=== PATIENT | female | born 1975 | race Caucasian/White ===

== ENCOUNTER 2018-08-08 11:52 | Emergency (ER) | payer OTHER ==
[~2018-08-08] VITALS: Ht 167.6 cm; Wt 77.1 kg
== END 2018-08-08 15:30 | disposition home or self-care (01) ==
LOC: ER 11:52
DX: G43.909 Migraine, unspecified, not intractable, without status migrainosus (principal); F17.200 Nicotine dependence, unspecified, uncomplicated
CPT/HCPCS: 70450; 96361; 96374; 96375; 99283-25; J0780; J1100; J1170; J1200; J1885; J7030

== ENCOUNTER 2019-04-13 14:52 | Emergency (ER) | payer OTHER ==
[~2019-04-13] VITALS: Ht 167.6 cm; Wt 71.8 kg
[2019-04-13 15:27] LABS: BASOPHILS ABSOLUTE AUTO 0.02 K/mm3 (0.00-0.23); BASOPHILS PERCENT AUTO 0 % (0-2); EOSINOPHILS ABSOLUTE AUTO 0.22 K/mm3 (0.00-0.68); EOSINOPHILS PERCENT AUTO 3 % (0-6); Hematocrit 39.5 % (33.0-51.0); Hemoglobin 13.5 g/dL (11.5-16.0); IMMATURE GRAN ABSOLUTE AUTO 0.02 K/mm3 (0.00-0.10); IMMATURE GRAN PERCENT AUTO 0 % (0-1); LYMPHOCYTES ABSOLUTE AUTO 1.81 K/mm3 (0.84-5.20); LYMPHOCYTES PERCENT AUTO 20 % (21-46); MONOCYTES ABSOLUTE AUTO 0.66 K/mm3 (0.16-1.47); MONOCYTES PERCENT AUTO 7 % (4-13); Mean Corpuscular HGB 30.6 pg (26.0-34.0); Mean Corpuscular HGB Conc 34.2 g/dL (31.5-36.5); Mean Corpuscular Volume 90 fL (80-100); Mean Platelet Volume 10.5 fL (9.1-12.4); NEUTROPHILS ABSOLUTE AUTO 6.14 K/mm3 (1.96-9.15); NEUTROPHILS PERCENT AUTO 69 % (41-73); Platelet Count 330 K/mm3 (150-400); RDW Coefficient Variation 12.8 % (11.7-14.2); RDW Standard Deviation 41.9 fL (35.1-46.3); Red Blood Cell Count 4.41 M/mm3 (3.80-5.20); White Blood Cell Count 8.87 K/mm3 (4.00-11.30)
[2019-04-13 15:44] LABS: Alanine Aminotransfer (ALT/SGP 21 U/L (12-78); Albumin, Blood 3.9 g/dL (3.4-5.0); Albumin/Globulin Ratio 0.9 (0.8-1.8); Alk Phos 84 U/L (50-136); Anion Gap 8 mmol/L (6-16); Aspartate Aminotrans (AST/SGOT 17 U/L (12-37); Bilirubin, Total 0.3 mg/dL (0.1-1.0); Blood Urea Nitrogen 10 mg/dL (8-24); Bun/Creatinine Ratio 14.3 (12.0-20.0); CO2, Blood 21 mmol/L (21-32); Calcium, Blood 9.1 mg/dL (8.5-10.1); Chloride, Blood 110 mmol/L (98-108); Globulin, Blood 4.2 g/dL (2.2-4.0); Glomerular Filtration Rate >60 (60-); Glucose, Blood 89 mg/dL (70-99); Potassium, Blood 3.7 mmol/L (3.5-5.5); Sodium, Blood 139 mmol/L (136-145); Total Protein, Blood 8.1 g/dL (6.4-8.2); Troponin I <0.015 ng/mL (0.000-0.040)
[2019-04-13 15:53] LABS: Thyroxine (T4) 11.6 ug/dL (4.8-13.9)
[2019-04-13 15:56] LABS: Thyroid Stimulating Hormone 1.2 uIU/mL (0.360-4.800)
[2019-04-13 20:40] LABS: U Amphetamine Screen Not Detected; U Barbituate Screen Not Detected; U Benzodiazapine Screen Not Detected; U Buprenorphine Screen Not Detected; U Cannabinoids Screen DETECTED; U Cocaine Screen Not Detected; U Methadone Screen Not Detected; U Methamphetamine Screen Not Detected; U Opiates Screen Not Detected; U Oxycodone Screen Not Detected; U Phencyclidine Screen Not Detected; U Propoxyphene Screen Not Detected
[2019-04-13] MEDS ORDERED: ALBU90OI INH (23:51)
[2019-04-13] MEDS ORDERED: Ativan1 MG SL (23:51)
== END 2019-04-14 00:45 | disposition home or self-care (01) ==
LOC: ER 14:52
PROVIDERS: Emergency Medicine; Physician Assistant
DX: R06.00 Dyspnea, unspecified (principal); F43.9 Reaction to severe stress, unspecified; G43.909 Migraine, unspecified, not intractable, without status migrainosus; F17.200 Nicotine dependence, unspecified, uncomplicated
CPT/HCPCS: 36415; 71046; 71260; 80053; 83735; 83880; 84436; 84443; 84484; 85025; 85379; 93005; 93010; 94664; 99285-25; Q9967

== ENCOUNTER 2020-01-30 11:51 | Inpatient (IN) | payer MEDICARE, OTHER ==
[~2020-01-30] VITALS: Ht 167.6 cm; Wt 71.2 kg
[~2020-01-30 11:51] MED LIST: ALBU90OI INH; Ativan1 MG SL
[2020-01-30 13:00] LABS: Source, Urine Clean Catch
[2020-01-30 13:03] LABS: BASOPHILS ABSOLUTE AUTO 0.03 K/mm3 (0.00-0.23); BASOPHILS PERCENT AUTO 0 % (0-2); EOSINOPHILS PERCENT AUTO 0 % (0-6); Hemoglobin 13.1 g/dL (11.5-16.0); IMMATURE GRAN PERCENT AUTO 1 % (0-1); LYMPHOCYTES ABSOLUTE AUTO 1.18 K/mm3 (0.84-5.20); LYMPHOCYTES PERCENT AUTO 8 % (21-46); MONOCYTES ABSOLUTE AUTO 1.32 K/mm3 (0.16-1.47); MONOCYTES PERCENT AUTO 9 % (4-13); Mean Corpuscular HGB 30.8 pg (26.0-34.0); Mean Corpuscular HGB Conc 34.5 g/dL (31.5-36.5); Mean Corpuscular Volume 89 fL (80-100); Mean Platelet Volume 9.6 fL (9.1-12.4); NEUTROPHILS ABSOLUTE AUTO 12.29 K/mm3 (1.96-9.15); NEUTROPHILS PERCENT AUTO 82 % (41-73); Platelet Count 423 K/mm3 (150-400); RDW Coefficient Variation 12.9 % (11.7-14.2); RDW Standard Deviation 42.5 fL (35.1-46.3); Red Blood Cell Count 4.25 M/mm3 (3.80-5.20); White Blood Cell Count 14.92 K/mm3 (4.00-11.30)
[2020-01-30 13:04] LABS: Appearance, Urine Cloudy (Clear); Blood, Urine 4+ (Neg); Color, Urine Yellow (P-Yellow); Glucose Qualitative, Urine Neg (Neg); Ketones, Urine 4+ (Neg); Leukocyte Esterase, Urine 3+ (Neg); Nitrite, Urine Neg (Neg); Protein, Urine 3+ (Neg); Urobilinogen, Urine 1+ (Normal)
[2020-01-30 13:10] LABS: Bilirubin, Urine 1+ (Neg)
[2020-01-30 13:11] LABS: White Blood Cells, Urine TNTC /hpf (0-5)
[2020-01-30 13:12] LABS: Bacteria Many /hpf; Squamous Epithelial Cells Few /hpf (Few)
[2020-01-30 13:29] LABS: Alanine Aminotransfer (ALT/SGP 276 U/L (12-78); Albumin, Blood 3.4 g/dL (3.4-5.0); Albumin/Globulin Ratio 0.6 (0.8-1.8); Alk Phos 321 U/L (50-136); Anion Gap 12 mmol/L (6-16); Aspartate Aminotrans (AST/SGOT 152 U/L (12-37); Blood Urea Nitrogen 12 mg/dL (8-24); Bun/Creatinine Ratio 12.6 (12.0-20.0); CO2, Blood 23 mmol/L (21-32); Calcium, Blood 9.7 mg/dL (8.5-10.1); Chloride, Blood 102 mmol/L (98-108); Creatinine, Blood 0.95 mg/dL (0.40-1.00); Globulin, Blood 5.8 g/dL (2.2-4.0); Glomerular Filtration Rate >60 (60-); Glucose, Blood 102 mg/dL (70-99); Potassium, Blood 2.8 mmol/L (3.5-5.5); Sodium, Blood 137 mmol/L (136-145); Total Protein, Blood 9.2 g/dL (6.4-8.2)
[2020-01-30] MEDS ORDERED: AMIT50 PO (14:06)
[2020-01-30] MEDS ORDERED: PREGABALIN50 MG PO (14:06)
[2020-01-30] MEDS ORDERED: DULOXETINE HCL60 M1 PO (14:09)
[2020-01-30] MEDS ORDERED: EUTHYROX88 MC1 PO (14:09)
[2020-01-30] MEDS ORDERED: ACETAMINOPHEN500 M2 PO (14:11)
--- NOTE | 2020-01-30 18:43 | NUR ---
NEW ER ADMIT PT ARRIVE TO RM APPROX 1800. SHE IS DISTRAUGHT, SHAKING UNCONTROLABLY, THROWING UP APPROX 300ML LIQUID WALKER BILE LIKE FLUID. STATE BACK & BILAT FLANK PAIN 7/10. PRN ZOFRAN & DILAUDID GIVEN/EMAR. APPROX 30 MIN PT STATE RELIEF, PAIN SUBSIDE TO 3/10, ADDITIONAL 50ML EMESIS HOWEVER STATE STOMACH HAS SETTLED. SHE IS A/O X4, PLEASANT/COOPERATIVE, AMBULATE IND. HR TACHY ON ARRIVAL 120-130 HOWEVER HAS DECREASED TO 110'S w SYMPTOM RELIEF.
[2020-01-31 04:43] LABS: BASOPHILS ABSOLUTE AUTO 0.03 K/mm3 (0.00-0.23); BASOPHILS PERCENT AUTO 0 % (0-2); EOSINOPHILS ABSOLUTE AUTO 0.06 K/mm3 (0.00-0.68); EOSINOPHILS PERCENT AUTO 1 % (0-6); Hematocrit 26.3 % (33.0-51.0); IMMATURE GRAN ABSOLUTE AUTO 0.06 K/mm3 (0.00-0.10); IMMATURE GRAN PERCENT AUTO 1 % (0-1); LYMPHOCYTES ABSOLUTE AUTO 1.27 K/mm3 (0.84-5.20); LYMPHOCYTES PERCENT AUTO 11 % (21-46); MONOCYTES ABSOLUTE AUTO 1.01 K/mm3 (0.16-1.47); MONOCYTES PERCENT AUTO 9 % (4-13); Mean Corpuscular HGB 31.7 pg (26.0-34.0); Mean Corpuscular HGB Conc 34.2 g/dL (31.5-36.5); Mean Corpuscular Volume 93 fL (80-100); Mean Platelet Volume 9.4 fL (9.1-12.4); NEUTROPHILS ABSOLUTE AUTO 9.41 K/mm3 (1.96-9.15); NEUTROPHILS PERCENT AUTO 80 % (41-73); Platelet Count 310 K/mm3 (150-400); RDW Coefficient Variation 13.2 % (11.7-14.2); RDW Standard Deviation 44.3 fL (35.1-46.3); Red Blood Cell Count 2.84 M/mm3 (3.80-5.20); White Blood Cell Count 11.84 K/mm3 (4.00-11.30)
--- NOTE | 2020-01-31 04:49 | NUR ---
SHIFT SUMMARY ADMITTED FOR SEPSIS. POSSIBLE UTI/PYELONEPHRITIS. FULL CODE. N/V AT BEGINNING OF SHIFT, NO EPISODES SHIFT WENT ON. AWAITING UA CULTURE RESULTS. 2ND AND FINAL LITER OF NS INFUSING @ 150 ML/HR. IV ANTIBIOTICS ARE SCHEDULED. PAIN AND NAUSEA MEDICATION REQUESTED THIS SHIFT. HYPOKALEMIA AND GASTRITIS NOTED THIS ADMISSION. PT HAS BEEN UNABLE TO EAT.
[2020-01-31 05:04] LABS: Magnesium, Blood 2.2 mg/dL (1.6-2.4)
[2020-01-31 05:06] LABS: Alanine Aminotransfer (ALT/SGP 135 U/L (12-78); Albumin, Blood 2.1 g/dL (3.4-5.0); Albumin/Globulin Ratio 0.6 (0.8-1.8); Alk Phos 189 U/L (50-136); Anion Gap 9 mmol/L (6-16); Aspartate Aminotrans (AST/SGOT 47 U/L (12-37); Bilirubin, Total 0.5 mg/dL (0.1-1.0); Blood Urea Nitrogen 9 mg/dL (8-24); CO2, Blood 21 mmol/L (21-32); Chloride, Blood 111 mmol/L (98-108); Creatinine, Blood 0.75 mg/dL (0.40-1.00); Globulin, Blood 3.8 g/dL (2.2-4.0); Glomerular Filtration Rate >60 (60-); Glucose, Blood 81 mg/dL (70-99); Phosphorus, Blood 3.1 mg/dL (2.5-4.9); Potassium, Blood 3.3 mmol/L (3.5-5.5); Sodium, Blood 141 mmol/L (136-145)
[2020-01-31 05:07] LABS: Calcium, Blood 7.7 mg/dL (8.5-10.1); Total Protein, Blood 5.9 g/dL (6.4-8.2)
--- NOTE | 2020-01-31 11:36 | NUR ---
POTASSIUM INFUSING AT 25 ML/HR WITH NACL AT 50ML/HR AND PATIENT ABLE TO TOLERATE.
--- NOTE | 2020-01-31 16:54 | NUR ---
ALERT. ORIENTED. MEDICATED T/O SHIFT FOR PAIN WITH GOOD RESULTS. POTASSIUM CL IV GOING IN SLOW WITH NACL DILUTING. INDEPENDENT IN ROOM. HAS BEEN ABLE TO TOLERATE; POPSICLES AND APPLESAUCE. [facility]
--- NOTE | 2020-02-01 04:24 | NUR ---
SHIFT SUMMARY ADMITTED FOR UTI/PYELEONEPHRITIS/SEPSIS. FULL CODE. IV ANTIBIOTICS ARE SCHEDULED. PT IS NOT EATING. SHE IS TAKING CLEAR LIQUIDS. POTASSIUM HAS BEEN INFUSED DUE TO LOW K+ LEVELS. ACYCLOVIR HAS BEEN ADMINISTERED ORDERED.
[2020-02-01 07:09] LABS: HBSAG SCREEN Negative (Negative); HEP A AB, IGM Negative (Negative); HEP B CORE AB, IGM Negative (Negative); HEP C VIRUS AB <0.1 (0.0-0.9)
[2020-02-01 07:15] LABS: Hematocrit 28.3 % (33.0-51.0); Hemoglobin 9.5 g/dL (11.5-16.0); Mean Corpuscular HGB 30.8 pg (26.0-34.0); Mean Corpuscular HGB Conc 33.6 g/dL (31.5-36.5); Mean Corpuscular Volume 92 fL (80-100); Mean Platelet Volume 9.3 fL (9.1-12.4); Platelet Count 402 K/mm3 (150-400); RDW Coefficient Variation 13.2 % (11.7-14.2); RDW Standard Deviation 44.4 fL (35.1-46.3); Red Blood Cell Count 3.08 M/mm3 (3.80-5.20); White Blood Cell Count 10.39 K/mm3 (4.00-11.30)
[2020-02-01 07:33] LABS: Anion Gap 8 mmol/L (6-16); Blood Urea Nitrogen 6 mg/dL (8-24); CO2, Blood 23 mmol/L (21-32); Calcium, Blood 8.7 mg/dL (8.5-10.1); Chloride, Blood 111 mmol/L (98-108); Creatinine, Blood 0.75 mg/dL (0.40-1.00); Glomerular Filtration Rate >60 (60-); Glucose, Blood 85 mg/dL (70-99); Potassium, Blood 3.7 mmol/L (3.5-5.5); Sodium, Blood 142 mmol/L (136-145)
[2020-02-01 07:44] LABS: BASOPHILS PERCENT MAN 0 % (0-2); EOSINOPHILS PERCENT MAN 0 % (0-6); LYMPHOCYTES ABSOLUTE MAN 1.45 K/mm3 (0.84-5.20); LYMPHOCYTES PERCENT MAN 14 % (21-46); METAMYELOCYTE PERCENT MAN 1 % (0-0); MONOCYTES ABSOLUTE MAN 1.24 K/mm3 (0.16-1.47); MONOCYTES PERCENT MAN 12 % (4-13); NEUTROPHILS ABSOLUTE MAN 7.58 K/mm3 (1.96-9.15); SEG NEUTROPHILS PERCENT MAN 73 % (41-73); TOTAL CELLS COUNTED 100
[2020-02-01] MEDS ORDERED: LACT PO (15:01)
[2020-02-01] MEDS ORDERED: ACYC200 PO (15:01)
[2020-02-01] MEDS ORDERED: SULFAMETHOXAZO1 EAC1 PO (15:02)
--- NOTE | 2020-02-01 16:56 | NUR ---
REVIEW D'C ORDERS. AWARE NEEDS TO MAKE F/U APPT FOR WITHIN 3 DAYS. AWARE WILL PROBABLY HAVE REPEAT UA ABOUT 1 WEEK AFTER FINISHING ANTIBIOTICS. KNOWS TO COMPLETE ALL ANTIBIOTICS. AWARE HAS 3 MEDS AT [facility] AND REVIEW HOW TO TAKE. ANSWER ALL QUESTIONS. IN W/C DOWN TO POV WITH S.O. DRIVING. STS FEELS MUCH BETTER AND IS ABLE TO EAT SOME FOODS. AWARE TO START WITH BRAT DIET THEN SLOWLY ADVANCE IF SHE HAS ANY NAUSEA.
== END 2020-02-01 16:48 | disposition home or self-care (01) | DRG 871 ==
LOC: ER 11:51 → MEDS 15:43
PROVIDERS: Family Medicine; Physician Assistant; ADMIT Internal Medicine
DX: A41.51 Sepsis due to Escherichia coli [E. coli] (principal); K22.6 Gastro-esophageal laceration-hemorrhage syndrome; N10 Acute pyelonephritis; E03.9 Hypothyroidism, unspecified; E87.6 Hypokalemia; G89.4 Chronic pain syndrome; M79.7 Fibromyalgia; F41.8 Other specified anxiety disorders; B00.1 Herpesviral vesicular dermatitis; M54.9 Dorsalgia, unspecified
CPT/HCPCS: 36415; 76700; 80048; 80053; 80074; 81001; 83605; 83735; 84100; 84132; 85025; 87040; 87077; 87086; 87186; 96365; 96366; 96368; 96375; 96376; 99285-25; A9270-GY; C9113; J0696; J1170; J1650; J1885; J2405; J3480; J7030; J7040

== ENCOUNTER 2020-10-07 06:52 | Emergency (ER) | payer MEDICARE, OTHER ==
[~2020-10-07] VITALS: Ht 167.6 cm; Wt 68.0 kg
[~2020-10-07 06:52] MED LIST changes: +ACETAMINOPHEN500 M2 PO; +ACYC200 PO; +AMIT50 PO; +DULOXETINE HCL60 M1 PO; +EUTHYROX88 MC1 PO; +LACT PO; +PREGABALIN50 MG PO; +SULFAMETHOXAZO1 EAC1 PO
== END 2020-10-07 07:40 | disposition home or self-care (01) ==
LOC: ER 06:52
DX: U07.1 COVID-19 (principal); F12.90 Cannabis use, unspecified, uncomplicated; E03.9 Hypothyroidism, unspecified; Z87.891 Personal history of nicotine dependence
CPT/HCPCS: 99284; A9270

== ENCOUNTER 2023-12-08 17:04 | Emergency (ER) | payer MEDICARE, OTHER ==
[~2023-12-08] VITALS: Ht 167.6 cm; Wt 81.7 kg
[~2023-12-08 17:04] MED LIST changes: +Ativan1 MG PO; +Inderal40 MG PO; +OMEPRAZOLE MAGN20 M1 PO
[2023-12-08 17:33] LABS: BASOPHILS ABSOLUTE AUTO 0.02 K/mm3 (0.00-0.23); BASOPHILS PERCENT AUTO 0 % (0-2); EOSINOPHILS PERCENT AUTO 3 % (0-6); Hematocrit 36.8 % (33.0-51.0); Hemoglobin 13.1 g/dL (11.5-16.0); IMMATURE GRAN ABSOLUTE AUTO 0.03 K/mm3 (0.00-0.10); IMMATURE GRAN PERCENT AUTO 0 % (0-1); LYMPHOCYTES ABSOLUTE AUTO 2.39 K/mm3 (0.84-5.20); LYMPHOCYTES PERCENT AUTO 31 % (21-46); MONOCYTES ABSOLUTE AUTO 0.74 K/mm3 (0.16-1.47); MONOCYTES PERCENT AUTO 10 % (4-13); Mean Corpuscular HGB Conc 35.6 g/dL (31.5-36.5); Mean Corpuscular Volume 87 fL (80-100); Mean Platelet Volume 9.5 fL (9.1-12.4); NEUTROPHILS PERCENT AUTO 56 % (41-73); Platelet Count 327 K/mm3 (150-400); RDW Coefficient Variation 13.1 % (11.7-14.2); RDW Standard Deviation 40.9 fL (35.1-46.3); Red Blood Cell Count 4.23 M/mm3 (3.80-5.20); White Blood Cell Count 7.68 K/mm3 (4.00-11.30)
[2023-12-08 17:50] LABS: Albumin, Blood 3.8 g/dL (3.4-5.0); Bilirubin, Total 0.5 mg/dL (0.1-1.0); Bun/Creatinine Ratio 7.5 (12.0-20.0); Calcium, Blood 8.8 mg/dL (8.5-10.1); Creatinine, Blood 1.07 mg/dL (0.40-1.00); Globulin, Blood 3.8 g/dL (2.2-4.0); Potassium, Blood 3.3 mmol/L (3.5-5.5); Total Protein, Blood 7.6 g/dL (6.4-8.2)
[2023-12-08 21:29] VITALS: BP 131/68
[2023-12-08] MEDS ORDERED: LEVSOD75 PO (21:55)
[2023-12-08] MEDS ORDERED: DASETTA 1-35-21 EACH PO (21:56)
[2023-12-08] MEDS ORDERED: CELE100 PO (21:56)
[2023-12-08] MEDS ORDERED: PRAZ1 PO (21:56)
[2023-12-08] MEDS ORDERED: CYCL10 PO ×2 (21:57)
== END 2023-12-08 21:28 | disposition home or self-care (01) ==
LOC: ER 17:04
PROVIDERS: Physician Assistant
DX: R07.89 Other chest pain (principal); E03.9 Hypothyroidism, unspecified; G43.909 Migraine, unspecified, not intractable, without status migrainosus; Z87.891 Personal history of nicotine dependence; Z79.899 Other long term (current) drug therapy
CPT/HCPCS: 71046; 80053; 83690; 84484; 85025; 93005; 93010; 99285-25

== ENCOUNTER → 2024-05-16 | Outpatient (CLI) | payer MEDICARE, OTHER ==
[~2024-05-16] MED LIST changes: +CELE100 PO; +CYCL10 PO; +DASETTA 1-35-21 EACH PO; +LEVSOD75 PO; +PRAZ1 PO
[2024-05-16 20:00] LABS: BASOPHILS ABSOLUTE AUTO 0.04 K/mm3 (0.00-0.23); BASOPHILS PERCENT AUTO 1 % (0-2); EOSINOPHILS ABSOLUTE AUTO 0.27 K/mm3 (0.00-0.68); EOSINOPHILS PERCENT AUTO 4 % (0-6); Hematocrit 39.8 % (33.0-51.0); Hemoglobin 13.8 g/dL (11.5-16.0); IMMATURE GRAN ABSOLUTE AUTO 0.02 K/mm3 (0.00-0.10); IMMATURE GRAN PERCENT AUTO 0 % (0-1); LYMPHOCYTES ABSOLUTE AUTO 2.26 K/mm3 (0.84-5.20); LYMPHOCYTES PERCENT AUTO 32 % (21-46); MONOCYTES ABSOLUTE AUTO 0.67 K/mm3 (0.16-1.47); MONOCYTES PERCENT AUTO 9 % (4-13); Mean Corpuscular HGB 30.8 pg (26.0-34.0); Mean Corpuscular HGB Conc 34.7 g/dL (31.5-36.5); Mean Corpuscular Volume 89 fL (80-100); Mean Platelet Volume 10.2 fL (9.1-12.4); NEUTROPHILS PERCENT AUTO 54 % (41-73); Platelet Count 475 K/mm3 (150-400); RDW Coefficient Variation 12.8 % (11.7-14.2); RDW Standard Deviation 41.7 fL (35.1-46.3); Red Blood Cell Count 4.48 M/mm3 (3.80-5.20); White Blood Cell Count 7.16 K/mm3 (4.00-11.30)
[2024-05-16 20:18] LABS: Alanine Aminotransfer (ALT/SGP 42 U/L (12-78); Albumin, Blood 3.9 g/dL (3.4-5.0); Albumin/Globulin Ratio 0.9 (0.8-1.8); Alk Phos 89 U/L (50-136); Anion Gap 9 mmol/L (3-11); Aspartate Aminotrans (AST/SGOT 33 U/L (12-37); Bilirubin, Total 0.3 mg/dL (0.1-1.0); Blood Urea Nitrogen 8 mg/dL (8-24); Bun/Creatinine Ratio 9.4 (12.0-20.0); CO2, Blood 27 mmol/L (21-32); Calcium, Blood 8.8 mg/dL (8.5-10.1); Chloride, Blood 102 mmol/L (98-108); Cholesterol 275 mg/dL (50-200); Creatinine, Blood 0.85 mg/dL (0.40-1.00); Globulin, Blood 4.3 g/dL (2.2-4.0); Glomerular Filtration Rate 84 (60-); Glucose, Blood 77 mg/dL (70-99); HDL Cholesterol 46 mg/dL (>39); LDL/HDL RATIO 4.2; Low Density Lipoprotein Chol 195 mg/dL (0-110); Potassium, Blood 3.4 mmol/L (3.5-5.5); Sodium, Blood 135 mmol/L (136-145); Total Protein, Blood 8.2 g/dL (6.4-8.2); Triglycerides 172 mg/dL (30-160); Very Low Density Lipoprot Chol 34 mg/dL (6-32)
== END ==
LOC: LAB 18:46 → LAB SHORT 18:46
PROVIDERS: Family Medicine
DX: Z51.81 Encounter for therapeutic drug level monitoring (principal); Z79.899 Other long term (current) drug therapy
CPT/HCPCS: 80053; 80061; 82306; 83036; 84443; 85025

== ENCOUNTER → 2024-09-21 | Outpatient (CLI) | payer MEDICARE, OTHER | LOC: LAB SHORT 17:10 → LAB 17:10 | DX: R35.0 Frequency of micturition (principal) | CPT/HCPCS: 87086 ==